=== PATIENT | male | born 1945 | race Caucasian/White ===

== ENCOUNTER 2016-10-04 09:00 | Emergency (ER) | payer MEDICARE, OTHER ==
[2016-10-04] MEDS ORDERED: NITROGLYCERIN 0.4 MG TAB.SUBL SUBLINGUAL ONE (09:20)
[2016-10-04] MEDS ORDERED: AMIODARONE HCL 150 MG/3 ML VIAL IV ONE (09:21)
[2016-10-04] MEDS ORDERED: NORMAL SALINE 100 ML IV ONE (09:23)
[2016-10-04] MEDS ORDERED: NITROGLYCERIN OINT 1 GM PACKET ONE (09:31)
[2016-10-04] MEDS ORDERED: FUROSEMIDE 20 MG/2 ML VIAL ONE (09:35)
[2016-10-04] MEDS ORDERED: MORPHINE SULFATE 2 MG/ML SYR ONE (09:38)
[2016-10-04 09:41] LABS: BLOOD UREA NITROGEN 47 mg/dL (9-20); CALCIUM 9.6 mg/dL (8.4-10.2); CHLORIDE 98 mmol/L (98-107); EST GLOMERULAR FILTRATION RATE 23 mL/min; GLUCOSE 163 mg/dL (70-100); MAGNESIUM 2.1 mg/dL (1.6-2.3); POTASSIUM 5.3 mmol/L (3.5-5.1); SODIUM 134 mmol/L (137-145)
[2016-10-04] MEDS ORDERED: MORPHINE SULFATE 4 MG/ML SYR ONE (09:48)
--- NOTE | 2016-10-04 10:04 | ER PHYSICIAN DOCUMENTATION ---
Physician Documentation [facility] Name:Yomi Leon Age:71 yrs Sex:Male :1945 Arrival Date:10/04/2016 Time:09:00 BedTrauma-C Private MD:No PCP, Identified ED Tahir Méndez Disposition: 10/04 09:38 Critical Care:. cd 10:05 Chart complete. cd Disposition: 10/04/16 09:40 Transfer ordered to [facility]. Diagnosis are Ventricular Tachycardia, Precordial Chest Pain, CHF (Congestive Heart Failure). - Reason for transfer: Higher level of care. - Accepting physician is Constantino Maldonado MD, Manager Clinical Research. - Condition is Critical. - Problem is new. - Symptoms have improved. COBRA Form completed? Yes Transfer - Mode of Transportation Helicopter HPI: 09:41 This 71 yrs old Male presents to ER via Private Vehicle with complaints of cd Chest Pain. 09:41 The patient or guardian reports chest pain that is located primarily in the substernal cd area. Onset: acutely, last night, at 21:00. The pain does not radiate. There has been no movement of pain. Associated signs and symptoms: Pertinent positives: recent travel, shortness of breath, Pertinent negatives: cough, diaphoresis, dizziness, lower extremity pain, lower extremity swelling, lightheadedness, nausea, palpitations. The chest pain is described as dull, a heaviness. Duration: The patient or guardian reports a single episode, that is still ongoing. Severity of pain: At its worst the pain was moderate a 6 / 10 in the emergency department the pain is unchanged. Risk factors for coronary artery disease include: This patient has a history of hypertension. This patient is a smoker. The risk factors for pulmonary embolism include: This patient is a smoker. This patient has been traveling recently. The patient has not experienced similar symptoms in the past. Patient has terminal Lung Cancer and has stopped Chemotherapy and Radiation. He declares that he is DNR status. He arrived from [facility], yesterday at 16:00 PM.. Historical: - Allergies: No known drug Allergies; - Home Meds: 1. aspirin 81 mg oral tab 1 tab once daily 2. sleeping aid - PMHx: LUNG AND BONE CANCER; - PSHx: NECK SURGERY FOR CANCER; - Tetanus: < 10 years. - Ebola Screening: : Patient negative for fever greater than or equal to 101.5 degrees Fahrenheit, and additional compatible Ebola Virus Disease symptoms. - Immunization history: Flu Vaccine < 1 year. - Social history: Smoking status: Patient uses tobacco products, current every day smoker. - Code Status:: No code. ROS: 09:44 ENT: Negative for injury, pain, epistaxis and discharge. cd 09:44 Neck: Negative for injury, pain, stiffness and swelling. cd Abdomen/GI: Negative for abdominal pain, nausea, vomiting, diarrhea, constipation, distension, melena, hematochezia and hematemesis. Back: Negative for injury, pain or muscle spasms. : Negative for injury, bleeding, discharge, swelling, dysuria, frequency or urgency. MS/Extremity: Negative for injury, deformity, edema, calf tenderness, pain or coldness. Skin: Negative for injury, rash, itching and discoloration. 09:44 Neuro: Negative for headache, weakness, numbness, tingling, and seizure. 09:44 Constitutional: Negative for chills, fever, poor PO intake. 09:44 Cardiovascular: Positive for chest pain, Negative for edema, orthopnea, palpitations. 09:44 Respiratory: Positive for dyspnea on exertion, shortness of breath, Negative for cough, hemoptysis, wheezing. 09:44 All other systems are negative. Exam: Eyes: Pupils equal round and reactive to light, extra-ocular motions intact. Lids and lashes normal. Conjunctiva and sclera are non-icteric and not injected. Cornea within normal limits. Periorbital areas with no swelling, redness, or edema. ENT: Nares patent. No nasal discharge, no septal abnormalities noted. Tympanic membranes are normal and external auditory canals are clear. Oropharynx with no redness, swelling, or masses, exudates, or evidence of obstruction, uvula midline. Mucous membranes moist. Neck: Trachea midline, no thyromegaly or masses palpated, and no cervical lymphadenopathy. Supple, full range of motion without nuchal rigidity, or vertebral point tenderness. No Meningismus. Chest/axilla: Normal chest wall appearance and motion. Nontender with no deformity. No lesions are appreciated. Abdomen/GI: Soft, non-tender, with normal bowel sounds. No distension or tympany. No guarding or rebound. No evidence of tenderness throughout. 09:45 Back: No spinal tenderness. No costovertebral tenderness. Full range of motion. cd MS/ Extremity: Pulses equal, no cyanosis. Neurovascular intact. Full, normal range of motion. 09:45 Neuro: Awake and alert, GCS 15, oriented to person, place, time, and situation. Cranial nerves II-XII grossly intact. Motor strength 5/5 in all extremities. Sensory grossly intact. Cerebellar exam normal. Normal gait. 09:45 Constitutional: The patient appears alert, awake, non-diaphoretic, non-toxic, ashen in color 09:45 Cardiovascular: Rate: tachycardic, actual rate is 125 bpm, Rhythm: regular, with runs of V-TAch, Pulses: no pulse deficits are appreciated, Heart sounds: normal, Edema: is not appreciated. 09:45 Respiratory: mild respiratory distress is noted, Respirations: normal, no acute changes, Breath sounds: rales, that are moderate, are located in both bases. 09:45 Skin: Appearance: Color: camilo, dusky. Vital Signs: 09:01 Pulse 125 MON; Resp 12; Temp 97.8(O); Pulse Ox 74% ; Weight 72.57 kg; Height 5 ft. 8 rh in. (172.72 cm); Pain 8/10; 09:04 BP 184 / 104 (auto/); rh 09:11 Pulse 122 MON; Resp 26; Pulse Ox 94% ; rh 09:17 BP 124 / 71 (auto/); rh 09:21 Pulse 116 MON; Resp 22; Pulse Ox 93% ; rh 09:32 BP 127 / 88; Pulse 110; Resp 18; Pulse Ox 93% on 4 lpm NC; rh 09:39 BP 136 / 107; Pulse 109; Resp 18; Pulse Ox 94% on 4 lpm NC; rh 09:01 Body Mass Index 24.33 (72.57 kg, 172.72 cm) rh Franki Coma Score: 09:45 Eye Response: spontaneous(4). Verbal Response: oriented(5). Motor Response: obeys cd commands(6). Total: 15. MDM: 09:03 Data interpreted: field representative: rate is 125 beats/min, rhythm is sinus tachycardia, cd ventricular tachycardia, with unifocal PVCs, Interpretation: tachycardia, ventricular tachycardia, Pulse oximetry: on room air is 75 %. Interpretation: hypoxia. Plan: O2 by NC applied. 09:05 Differential diagnosis: abnormal EKG, acute myocardial infarction, coronary artery cd disease congestive heart failure pneumonia, pulmonary embolus, unstable angina. Patient took aspirin in the Emergency Department. Patient did not receive fibrinolytic due to not indicated. ZURDO Risk Score: 1 - patient's age is greater or equal to 65 years, 1 - Three or more CAD risk factors, 1 - Recent [<24hrs] Severe Angina, TOTAL SCORE = 3. Data reviewed: vital signs, nurses notes, old medical records, EKG, and as a result, I will *Transfer Patient prescribe pain medication, morphine, NTG, Amiodarone IV Bolus and Drip. 09:11 Patient medically screened. cd 09:35 Physician consultation: Constantino Thomason MD was called at 09:21, was contacted at 09:27, cd regarding admission, to the ICU, consult, patient's condition, need to evaluate the patient as soon as possible, and will see patient in unit, after a discussion of the case, a recommendation for transfer for higher level of care is made. 09:38 Counseling: I had a detailed discussion with the patient and/or guardian regarding: the cd historical points, exam findings, and any diagnostic results supporting the discharge/admit diagnosis, radiology results, the need to transfer to another facility, for higher level of care, [facility] does not immediately have the required specialist. Response to treatment: the patient's symptoms have markedly improved after treatment, and as a result, I will Transfer patient to CCU at [facility]. 09:50 ED course: The patient's BP came down, V-TAch abated with the Amiodarone Bolus of 150mg cd over 10 minutes. An Amiodarone Drip was started at 1mg/min IVPB. Pain has been very difficult to control.. 10:24 EKG attached 10/04 10:16 Order name: CBC WITHOUT A DIFFERENTIAL; Complete Time: 12:27 EDMS 10/04 12:17 Interpretation: Abnormal: WHITE BLOOD COUNT 16.0; HEMOGLOBIN 12.6; HEMATOCRIT 36.8. cd 10/04 10:18 Order name: BASIC METABOLIC PANEL; Complete Time: 12:27 EDMS 10/04 12:17 Interpretation: Abnormal: POTASSIUM 5.3; BLOOD UREA NITROGEN 47; CREATININE 2.9; cd Hyperkalemia, Chronic Renal Insufficiency. 06/19 10:18 Order name: MAGNESIUM; Complete Time: 12:27 EDTX 10/04 12:17 Interpretation: Normal. 10/04 10:18 Order name: TROPONIN I; Complete Time: 12:27 EDMS 10/04 12:26 Interpretation: Abnormal: TROPONIN I 1.270. 10/04 10:19 Order name: MANUAL DIFFERENTIAL; Complete Time: 12:27 EDMS 10/04 12:26 Interpretation: Abnormal: NEUTROPHIL % (Manual) 87; BAND% (Manual) 2. 10/04 10:19 Order name: DDIMER; Complete Time: 12:27 EDMS 10/04 12:26 Interpretation: Abnormal: DDIMER 926. 10/04 10:25 Order name: BNP,NT-PRO; Complete Time: 12:27 EDMS 10/04 12:26 Interpretation: Abnormal: BNP,NT-PRO 5940; elevated. 10/04 10:25 Order name: PROTIME/INR; Complete Time: 12:27 EDMS 10/04 12:26 Interpretation: Normal. 10/05 08:57 Order name: CHEST; [place] [id number] [facility] 10/04 09:12 Order name: 12-lead EKG; Complete Time: 09:24 10/04 09:12 Order name: Iv Saline Lock; Complete Time: 09:24 10/04 09:12 Order name: Place Patient On Monitor; Complete Time: 09:24 10/04 09:12 Order name: Pulse Ox Continuous; Complete Time: 09:24 10/04 09:12 Order name: Oxygen; Complete Time: 09:24 cd Dispensed Medications: 09:10 Drug: Nitroglycerin 0.4 mg; Route: Sublingual; rh 09:29 Follow up: Response: Pain is decreased rh 09:14 Drug: Aspirin 81 mg, 4 tabs, total of 324 mg - Aspirin 81 mg; Route: PO; rh 09:29 Follow up: Response: No adverse reaction rh 09:15 Drug: amiodarone 150 mg; Route: IVP; Infused Over: 10 mins; Site: right antecubital; rh 09:29 Follow up: Response: No adverse reaction rh 09:21 CANCELLED (Physician Discretion): NS 0.9% 500 ml IV at bolus once cd 09:24 Drug: Nitroglycerin Ointment 2 % 1 inches; Route: Transdermal; Site: anterior chest lpr wall; 09:25 Drug: Furosemide 20 mg; Route: IVP; Site: right hand; lpr 09:30 Follow up: Response: No adverse reaction rh 09:26 Drug: morphine 1 mg; Route: IVP; Site: right hand; rh 09:30 Follow up: Response: Pain is decreased rh 09:27 CANCELLED (Duplicate Order): amiodarone 150 mg IVP once over 10 mins rh 09:29 CANCELLED (Duplicate Order): Lasix 20 mg IVP once rh 09:30 Drug: amiodarone 360 mg; Route: IVPB; Infused Over: 6 hrs; Site: right antecubital; rh 09:53 Follow up: IV Status: Infusing continued upon transfer rh 09:30 Drug: morphine 1 mg; Route: IVP; Site: right hand; rh 09:30 Follow up: Response: Pain is decreased rh 09:36 CANCELLED (Duplicate Order): morphine 1 mg IVP once rh 09:37 Drug: morphine 1 mg; Route: IVP; Site: right hand; rh 09:39 Follow up: Response: Pain is decreased rh 09:40 Drug: morphine 1 mg; Route: IVP; Site: right hand; rh 09:42 Follow up: Response: No adverse reaction rh Critical care time excluding procedures: 09:38 Critical care time: Bedside Care: 45 minutes, Consultation: 10 minutes. Total time: 55 cd minutes Signatures: Tahir Cordova MD MD cd Roberts, Leslie, RN RN [facility] Anjelica Douglas
--- NOTE | 2016-10-04 10:04 | ER NURSING DOCUMENTATION ---
Nurse's Notes [facility] Name:Yomi Leon Age:71 yrs Sex:Male :1945 Arrival Date:10/04/2016 Time:09:00 BedTrauma-C Private MD:No PCP, Identified Diagnosis:Ventricular Tachycardia;Precordial Chest Pain;CHF (Congestive Heart Failure) Presentation: 10/04 09:08 Acuity: MAMTA 2 rh 09:17 Presenting complaint: Presenting complaint: Patient states: Pt began having chest pain rh last night. it was substernal and constant since her arrived from [place]. Pt was 75% on room and. Transition of care: Home. Asprin Given Given in ED 324 mg po. 09:17 Method Of Arrival: Private Vehicle rh Triage Assessment: 09:20 General: Appears in no apparent distress, Behavior is cooperative. Pain: Complains of rh pain in chest. EENT: Oral mucosa is dry. Neuro: Level of Consciousness is awake, alert, obeys commands, Oriented to person, place, time, event. Cardiovascular: Capillary refill < 3 seconds Reports shortness of breath Denies lightheadedness, Chest pain is described as severe, quality is pressure, is located in anterior began 1 day ago. Respiratory: Airway is patent Respiratory effort is even, labored, Respiratory pattern is regular, symmetrical, Reports shortness of breath. GI: Abdomen is obese, Abd is soft and non tender Denies diarrhea, nausea, vomiting. : No deficits noted. Derm: Skin is intact, is healthy with good turgor, Skin is pink, warm & dry. Musculoskeletal: Circulation, motion, and sensation intact Range of motion intact in all extremities. Historical: - Allergies: No known drug Allergies; - Home Meds: 1. aspirin 81 mg oral tab 1 tab once daily 2. sleeping aid - PMHx: LUNG AND BONE CANCER; - PSHx: NECK SURGERY FOR CANCER; - Tetanus: < 10 years. - Ebola Screening: : Patient negative for fever greater than or equal to 101.5 degrees Fahrenheit, and additional compatible Ebola Virus Disease symptoms. - Immunization history: Flu Vaccine < 1 year. - Social history: Smoking status: Patient uses tobacco products, current every day smoker. - Code Status:: No code. Screenin:22 Infectious Disease Risk None. Abuse screen: Denies threats or abuse. Denies injuries rh from another. Nutritional screening: No deficits noted. Assessment: 09:12 Reassessment: PT WAS PLACED ON PADS. rh 09:30 Reassessment: PT rhythm shows trigeminy . rh Vital Signs: 09:01 Pulse 125 MON; Resp 12; Temp 97.8(O); Pulse Ox 74% ; Weight 72.57 kg; Height 5 ft. 8 rh in. (172.72 cm); Pain 8/10; 09:04 BP 184 / 104 (auto/); rh 09:11 Pulse 122 MON; Resp 26; Pulse Ox 94% ; rh 09:17 BP 124 / 71 (auto/); rh 09:21 Pulse 116 MON; Resp 22; Pulse Ox 93% ; rh 09:32 BP 127 / 88; Pulse 110; Resp 18; Pulse Ox 93% on 4 lpm NC; rh 09:39 BP 136 / 107; Pulse 109; Resp 18; Pulse Ox 94% on 4 lpm NC; rh 09:01 Body Mass Index 24.33 (72.57 kg, 172.72 cm) rh Jones Coma Score: 09:45 Eye Response: spontaneous(4). Verbal Response: oriented(5). Motor Response: obeys cd commands(6). Total: 15. ED Course: 09:00 EKG done. (by ED staff). Reviewed by Tahir Cordova MD. rh 09:01 Patient arrived in ED. ds 09:01 No PCP, Identified is Private Physician. ds 09:05 Notified ED Physician of patient's arrival and chief complaint. Dr. Cordova notified. rh 09:05 air sampling and monitoring on. Pulse ox on. NIBP on. rh 09:07 Inserted peripheral IV: 20 gauge in right antecubital area and blood collected. rh 09:08 Triage completed. rh 09:11 Tahir Cordova MD is Attending Physician. cd 09:20 Inserted peripheral IV: 24 gauge in right hand. rh 09:22 Valuables Remains with patient Patient has correct armband on for positive rh identification. Placed in gown. Bed in low position. Call light in reach. Side rails up X 1. 09:22 Oxygen Oxygen administration via nasal cannula @ 3L/min. rh 09:24 Anjelica Douglas is Primary Nurse. rh 10:24 EKG attached rh Administered Medications: 09:10 Drug: Nitroglycerin 0.4 mg; Route: Sublingual; rh 09:29 Follow up: Response: Pain is decreased rh 09:14 Drug: Aspirin 81 mg, 4 tabs, total of 324 mg - Aspirin 81 mg; Route: PO; rh 09:29 Follow up: Response: No adverse reaction rh 09:15 Drug: amiodarone 150 mg; Route: IVP; Infused Over: 10 mins; Site: right antecubital; rh 09:29 Follow up: Response: No adverse reaction rh 09:21 CANCELLED (Physician Discretion): NS 0.9% 500 ml IV at bolus once cd 09:24 Drug: Nitroglycerin Ointment 2 % 1 inches; Route: Transdermal; Site: anterior chest lpr wall; 09:25 Drug: Furosemide 20 mg; Route: IVP; Site: right hand; lpr 09:30 Follow up: Response: No adverse reaction rh 09:26 Drug: morphine 1 mg; Route: IVP; Site: right hand; rh 09:30 Follow up: Response: Pain is decreased rh 09:27 CANCELLED (Duplicate Order): amiodarone 150 mg IVP once over 10 mins rh 09:29 CANCELLED (Duplicate Order): Lasix 20 mg IVP once rh 09:30 Drug: amiodarone 360 mg; Route: IVPB; Infused Over: 6 hrs; Site: right antecubital; rh 09:53 Follow up: IV Status: Infusing continued upon transfer rh 09:30 Drug: morphine 1 mg; Route: IVP; Site: right hand; rh 09:30 Follow up: Response: Pain is decreased rh 09:36 CANCELLED (Duplicate Order): morphine 1 mg IVP once rh 09:37 Drug: morphine 1 mg; Route: IVP; Site: right hand; rh 09:39 Follow up: Response: Pain is decreased rh 09:40 Drug: morphine 1 mg; Route: IVP; Site: right hand; rh 09:42 Follow up: Response: No adverse reaction rh Output: 09:55 Urine: 0ml; Total: 0ml. rh Outcome: 09:40 ER care complete, transfer ordered by . cd 09:55 [facility] Time: October 04, 2016 at 09:15 Patient's face sheet was faxed to accepting facility. Face Sheet included patient's name, address, age, gender, contact information and insurance information. Patient will be transported by: Report called to: Ioana Ardon RN Nurse and Physician Charting and Notes were sent to Accepting Facility. All tests and/or procedures with results, if applicable, were sent to accepting facility. : Condition: stable :55 Discharge Assessment: Patient awake, alert and oriented x 3. No cognitive and/or functional deficits noted. Patient verbalized understanding of disposition instructions. : Instructed on need for transfer 10:03 Patient left the ED. Signatures: Rylee Quiroz, Reg Reg Tahir Osborne MD MD cd Roberts, Leslie, RN RN Anjelica Rendon
[2016-10-04 10:15] LABS: HEMATOCRIT 36.8 % (42.0-54.0); HEMOGLOBIN 12.6 g/dL (14.0-18.0); MEAN CELL VOLUME 92.9 fL (80.0-100.0); MEAN CORPUS. HGB CONCENTRATION 34.1 g/dL (32.0-36.0); MEAN CORPUSCULAR HEMOGLOBIN 31.7 pg (29.0-35.0); MEAN PLATELET VOLUME 7.8 fL (7.4-10.4); PLATELET COUNT 294 X 10^3uL (130-440); RED BLOOD COUNT 3.96 X 10^6uL (4.20-6.10); RED CELL DISTRIBUTION WIDTH 15.4 % (11.5-14.5)
[2016-10-04 10:17] LABS: BAND% (Manual) 2 % (0.0-1.0); NEUTROPHIL % (Manual) 87 % (54.0-75.0)
[2016-10-04 10:18] LABS: BASOPHIL % (Manual) 2 % (0.0-2.0); EOSINOPHIL % (Manual) 0 % (0.0-6.0); LYMPHOCYTE % (Manual) 3 % (20.0-40.0); MONOCYTE % (Manual) 6 % (2.0-10.0); PLATELET ESTIMATE ADEQUATE
[2016-10-04 10:22] LABS: INR 1.2
--- NOTE | 2016-10-05 08:45 | RADIOLOGY REPORT ---
A limited single portable view of the chest, without prior films for comparison , demonstrates mild enlargement of the cardiac silhouette. The central pulmonary vasculature is indistinct. Scattered increased markings are seen throughout both lung knight. Nonspecific opacification is seen at the right lung base. Infiltrate versus mass. Fluid is seen blunting the right costophrenic angle. No pneumothorax is seen. IMPRESSION: 1. The findings are consistent with a degree of congestive failure. 2. Indeterminate opacification at the right lung base. Mass versus infiltrate versus focal edema. MTDD
== END 2016-10-04 10:04 | disposition short-term general hospital (02) ==
LOC: ER 09:00
DX: I47.2 Ventricular tachycardia (principal); R07.2 Precordial pain; I50.20 Unspecified systolic (congestive) heart failure; R06.02 Shortness of breath; R06.00 Dyspnea, unspecified; I49.3 Ventricular premature depolarization; C34.90 Malignant neoplasm of unspecified part of unspecified bronchus or lung; E87.5 Hyperkalemia; N18.9 Chronic kidney disease, unspecified; R79.1 Abnormal coagulation profile; F17.210 Nicotine dependence, cigarettes, uncomplicated; Z66 Do not resuscitate; Z79.82 Long term (current) use of aspirin; Z79.899 Other long term (current) drug therapy; Z74.3 Need for continuous supervision; Z99.89 Dependence on other enabling machines and devices
CPT/HCPCS: 71010; 80048; 83735; 83880; 84484; 85007; 85027; 85379; 85610; 93005; 93010; 96365; 96375; 99285; 99291; J0282; J1940; J2270